=== PATIENT | male | born 1985 | race Caucasian/White ===

== ENCOUNTER 2017-01-20 08:49 | Day surgery (SDC) | payer BC ==
[~2017-01-20] VITALS: Ht 172.7 cm; Wt 113.2 kg
[~2017-01-20 08:49] MED LIST: CEPHALEXIN500 M1 PO; NORCO 325 MG-51 TAB PO
[2017-01-20] MEDS ORDERED: ZOLOFT 100MG100 MG PO (09:13)
[2017-01-20] MEDS ORDERED: ADDERALL20 MG PO (09:14)
[2017-01-20 10:30] VITALS: BP 121/87; PULSE 93; TEMP 97.5
[2017-01-20 10:45] VITALS: BP 118/82; PULSE 88
== END 2017-01-20 11:00 | disposition home or self-care (01) ==
LOC: SDCO 08:49
DX: K64.8 Other hemorrhoids (principal); K60.1 Chronic anal fissure; K92.1 Melena; K62.89 Other specified diseases of anus and rectum; F90.9 Attention-deficit hyperactivity disorder, unspecified type
CPT/HCPCS: J2250; J3010; J7030